=== PATIENT | female | born 1970 | race Hispanic/Latino ===

== ENCOUNTER 2017-02-16 17:28 | Emergency (ER) | payer MEDICAID ==
--- NOTE | 2017-02-16 18:33 | ED PDOC ---
Arrival/HPI - General Chief Complaint: Dental Pain Time Seen by Provider: 02/16/17 17:34 Historian: Patient - Critical Care Narrative Critical Care (Text): 02/16/17 18:25 46 y/o female with no significant PMH presenting with complaints of dental pain with associated headache. Patient had two right upper posterior molars extracted 2 days ago. Since that time she has been experiencing right sided jaw and facial pain. She has taken ibuprofen without relief. She notes subjective fever and chills, nasal congestion and post-nasal drip. - History of Present Illness Time/Duration: < week Past Medical History - Provider Review Nursing Documentation Reviewed: Yes - Infectious Disease Hx of Infectious Diseases: None - Neurological Hx Migraine: Yes - Psychiatric Hx Substance Use: No - Anesthesia Hx Anesthesia: No Family/Social History - Physician Review Nursing Documentation Reviewed: Yes Family/Social History: Unknown Family HX Smoking Status: Never Smoked Hx Alcohol Use: No Hx Substance Use: No Allergies/Home Meds Allergies/Adverse Reactions: Allergies No Known Allergies Allergy (Verified 09/07/16 14:25) Review of Systems - Physician Review All systems were reviewed & negative as marked: Yes - Review of Systems Constitutional: Normal, Fevers Eyes: Normal ENT: Rhinorrhea, Sinus Congestion, Other (right dental pain ). absent: Hearing Changes, Tinnitus, TMJ Pain Respiratory: Normal. absent: SOB, Cough Cardiovascular: Normal, Palpitations. absent: Chest Pain Gastrointestinal: Normal, Nausea. absent: Abdominal Pain, Diarrhea, Vomiting Musculoskeletal: Normal. absent: Arthralgias, Back Pain, Neck Pain Skin: Normal. absent: Rash, Pruritis, Skin Lesions Neurological: Headache. absent: Dizziness, Focal Weakness Psychiatric: absent: Anxiety, Depression Physical Exam Vital Signs Reviewed: Yes Temperature: Afebrile Blood Pressure: Normal Pulse: Regular Respiratory Rate: Normal Appearance: Positive for: Well-Appearing, Non-Toxic Pain Distress: None Mental Status: Positive for: Alert and Oriented X 3 - Systems Exam Head: Present: Atraumatic, Normocephalic, Tenderness (right maxillary sinus ) Pupils: Present: PERRL Extroacular Muscles: Present: EOMI Conjunctiva: Present: Normal Mouth: Present: Moist Mucous Membranes, Other (right upper molar extraction site with scant blood. no erythema or purulent drainage) Neck: Present: Normal Range of Motion Respiratory/Chest: Present: Clear to Auscultation, Good Air Exchange. No: Respiratory Distress Cardiovascular: Present: Regular Rate and Rhythm, Normal S1, S2 Abdomen: Present: Tenderness, Normal Bowel Sounds Back: Present: Normal Inspection Upper Extremity: Present: Normal Inspection, Normal ROM. No: Cyanosis, Edema Lower Extremity: Present: Normal Inspection, Edema, NORMAL PULSES. No: CALF TENDERNESS Neurological: Present: GCS=15, CN II-XII Intact, Speech Normal Skin: Present: Warm, Dry Psychiatric: Present: Alert, Oriented x 3, Normal Insight, Normal Concentration Medical Decision Making ED Course and Treatment: 02/16/17 18:36 46 y/o female with no significant hx presenting with dental pain s/p right upper posterior molar extraction. Patient is afebrile and without signs of infection. She is scheduled to see her dentist on Sunday. - Toradol 30mg IM once - viscous lidocaine applied to gums - zofran for nausea - Amoxicillin 500mg q12 for 7 days 02/16/17 18:42 Patient will f/u with her dentist in 3 days. - Medication Orders Current Medication Orders: Discontinued Medications Ketorolac Tromethamine (Toradol) 30 mg IM STAT STA Stop: 02/16/17 18:15 Lidocaine HCl (Lidocaine 2% Viscous) 15 ml MM STAT STA Stop: 02/16/17 18:21 Ondansetron HCl (Zofran Tab) 4 mg PO STAT STA Stop: 02/16/17 18:21 Disposition/Present on Arrival - Present on Arrival Any Indicators Present on Arrival: No History of DVT/PE: No History of Uncontrolled Diabetes: No Urinary Catheter: No History Surgical Site Infection Following: None - Disposition Have Diagnosis and Disposition been Completed?: Yes Diagnosis: Pain, dental Disposition: HOME/ ROUTINE Disposition Time: 18:45 Patient Plan: Discharge Patient Problems: Current Active Problems Problem Status Diagnosed Pain, dental Acute Condition: GOOD Discharge Instructions (ExitCare): Toothache (ED) Additional Instructions: Please see your dentist on Sunday. You are prescribed an antibiotic. Please take this medication as directed for 7 days. Return to the ED if symptoms change or worsen. Prescriptions: Amoxicillin [Amoxil 500 mg Cap] 500 mg PO Q12H #14 cap
[2017-02-16 19:04] VITALS: BP 106/63; PULSE 79; RESP 18; TEMP 98.3; O2SAT 99
--- NOTE | 2017-02-17 12:53 | CARD ---
APPROVED REPORT EKG Measurement Heart [id number] IN [id number] <Conclusion> Normal sinus rhythm Normal ECG
== END 2017-02-16 19:12 | disposition home or self-care (01) ==
LOC: ED 17:28
DX: K08.89 Other specified disorders of teeth and supporting structures (principal)
CPT/HCPCS: 93005; 96372; 99283; J1885